=== PATIENT | female | born 1980 | race Caucasian/White ===

== ENCOUNTER 2018-06-18 21:24 | Emergency (ER) | payer MEDICAID, SELFPAY ==
[2018-06-18 21:37] VITALS: BP 144/98; PULSE 116; RESP 20; TEMP 37; O2SAT 96
--- NOTE | 2018-06-18 21:58 | W.ED.GENAD ---
Discharge Plan Disposition Patient Disposition: HOME Condition: Stable Discharge Details Chief Complaint: Sorethroat Clinical Impression: Acute streptococcal pharyngitis Primary Care Provider: Wu Farr ED Provider: Evans Byrd Home Meds and New Rx's Prescriptions: New amoxicillin 500 mg tablet 500 mg PO BID Qty: 20 RF: 0 No Action ibuprofen 800 mg Tablet 800 mg PO TID PRNRF: 0 multivitamin with minerals Tablet 1 tab PO DAILY RF: 0 Discharge Instructions Instructions: Pharyngitis (ED) Additional Instructions: if you develop difficulty breathing or inability to swallow liquids return to the emergency department Medical Decision Making 38 yo female who denies chronic medical problems comes in with chief compalint of sore throat for a few days. Has had strep throat and states peritonsillar abscess 10 years ago. On exam she is speaking in clear sentences without drooling or stridor. 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 Date/Time Provider Initiated Documentation: 06/18/18 21:35. Limitations to Documentation: no limitations. Information obtained by: patient. History of Present Illness 38 year old F presents to the emergency department with the chief complaint of sore throat, described as severe, and is localized to the mouth (throat). Patient started experiencing this day(s) (2) and it has been constant. No relieving factors improve symptom(s), No exacerbating factors reported . Patient did receive the following treatments prior to arrival, NSAID Related Data Home Medications Medication Instructions Recorded Confirmed amoxicillin 500 mg PO BID #20 tab 06/18/18 ibuprofen 800 mg PO TID PRN 06/18/18 06/18/18 multivitamin with minerals 1 tab PO DAILY 06/18/18 06/18/18 Previous Rx's Medication Instructions Recorded amoxicillin 500 mg PO BID #20 tab 06/18/18 Allergies Allergy/AdvReac Type Severity Reaction Status Date / Time No Known Allergies Allergy Unverified 06/18/18 21:40 General Stated Complaint: Sorethroat GISELLE: 4 Review of Systems Review of Systems All systems reviewed & are unremarkable except as noted in HPI and below Constitutional Denies weakness Cardiovascular Denies dyspnea Respiratory Denies dyspnea Gastrointestinal Denies vomiting Neurologic Denies weakness [facility] Social History Smoking and Tabacco status: Never Exam Const General: no acute distress Orientation: alert HENMT Head: normal to inspection Ears: external ears normal General nose exam: external nose normal Mouth: moist mucous membranes Eyes General: appearance normal, both eyes and all related structures Neck Neck: normal visual inspection Resp Effort & Inspection: normal respiratory effort and able to speak in complete sentences Cardio Rate: regular rate Skin General skin exam: no rashes or lesions noted Neuro General: alert and oriented x3 Extrem General: normal to inspection Psych Mental Status: mental status grossly normal Course Vital Signs Temperature 37.0 C 06/18/18 21:37 Pulse 116 H 06/18/18 21:37 Respiratory Rate 20 06/18/18 21:37 Blood Pressure 144/98 H 06/18/18 21:37 Pulse Oximetry 96 06/18/18 21:37 Temperature 37.0 C 06/18/18 21:37 Temperature Source Skin 06/18/18 21:37 Pulse 116 H 06/18/18 21:37 Respiratory Rate 20 06/18/18 21:37 Respiratory Effort Non-Labored 06/18/18 21:52 Blood Pressure 144/98 H 06/18/18 21:37 Blood Pressure Position Sitting 06/18/18 21:37 Pulse Oximetry 96 06/18/18 21:37 Oxygen Delivery Method Room Air 06/18/18 21:37 Oxygen Flow Rate 0 06/18/18 21:37 Pain Level 7 06/18/18 21:37 Lab/Test Results Lab/Test Results: POC Strep Test-NAVID(Rapid) Start: 06/18/18 21:52 Freq: Status: Active Protocol: Document 06/18/18 21:52 JESSICA (Rec: 06/18/18 21:52 [email or web address]) Strep test-NAVID(Rapid)-POC POC-Strep test-NAVID (Rapid) Positive POC-Strep test-NAVID (Rapid) Positive
--- NOTE | 2018-06-18 22:07 | ED.GENADUL_ITS ---
Discharge Plan Disposition Patient Disposition: HOME Condition: Stable Discharge Details Chief Complaint: Sorethroat Clinical Impression: Acute streptococcal pharyngitis Primary Care Provider: Wu Farr ED Provider: Evans Byrd Home Meds and New Rx's Prescriptions: New amoxicillin 500 mg tablet 500 mg PO BID Qty: 20 RF: 0 No Action ibuprofen 800 mg Tablet 800 mg PO TID PRNRF: 0 multivitamin with minerals Tablet 1 tab PO DAILY RF: 0 Discharge Instructions Instructions: Pharyngitis (ED) Additional Instructions: if you develop difficulty breathing or inability to swallow liquids return to the emergency department Medical Decision Making 38 yo female who denies chronic medical problems comes in with chief compalint of sore throat for a few days. Has had strep throat and states peritonsillar abscess 10 years ago. On exam she is speaking in clear sentences without drooling or stridor. 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 Date/Time Provider Initiated Documentation: 06/18/18 21:35 . Limitations to Documentation: no limitations . Information obtained by: patient . History of Present Illness 38 year old F presents to the emergency department with the chief complaint of sore throat, described as severe, and is localized to the mouth (throat). Patient started experiencing this day(s) (2) and it has been constant. No relieving factors improve symptom(s), No exacerbating factors reported . Patient did receive the following treatments prior to arrival, NSAID Related Data Home Medications Medication Instructions Recorded Confirmed amoxicillin 500 mg PO BID #20 tab 06/18/18 ibuprofen 800 mg PO TID PRN 06/18/18 06/18/18 multivitamin with minerals 1 tab PO DAILY 06/18/18 06/18/18 Previous Rx's Medication Instructions Recorded amoxicillin 500 mg PO BID #20 tab 06/18/18 Allergies Allergy/AdvReac Type Severity Reaction Status Date / Time No Known Allergies Allergy Unverified 06/18/18 21:40 General Stated Complaint: Sorethroat GISELLE: 4 Review of Systems Review of Systems All systems reviewed & are unremarkable except as noted in HPI and below Constitutional Denies weakness Cardiovascular Denies dyspnea Respiratory Denies dyspnea Gastrointestinal Denies vomiting Neurologic Denies weakness [facility] Social History Smoking and Tabacco status: Never Exam Const General: no acute distress Orientation: alert HENMT Head: normal to inspection Ears: external ears normal General nose exam: external nose normal Mouth: moist mucous membranes Eyes General: appearance normal, both eyes and all related structures Neck Neck: normal visual inspection Resp Effort & Inspection: normal respiratory effort and able to speak in complete sentences Cardio Rate: regular rate Skin General skin exam: no rashes or lesions noted Neuro General: alert and oriented x3 Extrem General: normal to inspection Psych Mental Status: mental status grossly normal Course Vital Signs Temperature 37.0 C 06/18/18 21:37 Pulse 116 H 06/18/18 21:37 Respiratory Rate 20 06/18/18 21:37 Blood Pressure 144/98 H 06/18/18 21:37 Pulse Oximetry 96 06/18/18 21:37 Temperature 37.0 C 06/18/18 21:37 Temperature Source Skin 06/18/18 21:37 Pulse 116 H 06/18/18 21:37 Respiratory Rate 20 06/18/18 21:37 Respiratory Effort Non-Labored 06/18/18 21:52 Blood Pressure 144/98 H 06/18/18 21:37 Blood Pressure Position Sitting 06/18/18 21:37 Pulse Oximetry 96 06/18/18 21:37 Oxygen Delivery Method Room Air 06/18/18 21:37 Oxygen Flow Rate 0 06/18/18 21:37 Pain Level 7 06/18/18 21:37 Lab/Test Results Lab/Test Results: POC Strep Test-NAVID(Rapid) Start: 06/18/18 21:5 2 Freq: Status: Active Protocol: Document 06/18/18 21:52 (Rec: 06/18/18 21:52 [email or web address]) Strep test-NAVID(Rapid)-POC POC-Strep test-NAVID (Rapid) Positive POC-Strep test-NAVID (Rapid) Positive
[2018-06-18] MEDS: Dexamethasone 10 MG/ML VIAL PO (22:10)
[2018-06-18] MEDS: Amoxicillin 500 MG CAP PO (22:10)
== END 2018-06-18 22:12 | disposition home or self-care (01) ==
PROVIDERS: Emergency Provider Emergency Medicine; PCP Internal Medicine
DX: J02.0 Streptococcal pharyngitis (principal)
CPT/HCPCS: 87880; 99283; J1100

== ENCOUNTER 2019-12-08 00:39 | Outpatient (CLI) | payer MEDICAID, SELFPAY ==
--- NOTE | 2019-12-08 | DI.US_ITS ---
EXAM: US BREAST LT LIMITED CLINICAL HISTORY: TENDER SWOLLEN AREA LT BREAST AT 1:00 O'CLOCK 6 CM FROM NIPPLE. TECHNIQUE: Craniocaudal and mediolateral oblique Full Field Digital Mammography views with Computer Aided Diagnosis followed by Tomosynthesis and left breast ultrasound. COMPARISON: No exams were available for comparison FINDINGS: Mammography/Tomosynthesis: Masses/Architectural Distortion: None seen. Microcalcifictions: No suspicious pleomorphic-type are seen. Skin Thickening/Nipple Retraction: None. Left breast US: Echotexture: Normal appearance of the glandular tissue. Shadowing: No suspicious foci. Cyst: None. Solid lesions: None seen. Ductal dilation: None. IMPRESSION: 1. No evidence of malignancy is noted. 2. Unless there is more urgent need, follow-up screening mammography is recommended, as per [place] [employer] guidelines. 3. The findings were discussed with the patient on the date of the examination. BI-RADS Category 1 - Negative Breast Density - Category C - Heterogeneously dense The mammogram demonstrates the patient's breast tissue is dense. Dense breast tissue is very common a nd is not abnormal but dense breast tissue can make it harder to find cancer on a mammogram. Also, de nse breast tissue may increase their breast cancer risk. This information about the result of the [facility] mogram report was provided to the patient to raise their awareness. Use this report when you speak wi th the patient about their risks for breast cancer, which includes their family history. At that time , you may recommend for more screening tests (Ultrasound or MRI) as they might be useful based on the ir risk. A negative radiographic report should not delay biopsy if a dominant or clinically suspicious mass is present. Up to ten percent of cancers are not identified on mammography. A negative report may reinforce clinical impression. Adenosis and dense breasts may obscure an underlying neoplasm. False positive reports average 6 to 10%. Patient will receive a letter notifying them of these results.
--- NOTE | 2019-12-08 09:25 | DI.MAMMO_ITS ---
EXAM: MG MAMMO DIAGNOSTIC BI CLINICAL HISTORY: DIAGNOSTIC, TENDER SWOLLEN AREA LT BREAST 1:00 O'CLOCK APPROX 6 CM FROM. TECHNIQUE: Craniocaudal and mediolateral oblique Full Field Digital Mammography views with Computer Aided Diagnosis followed by Tomosynthesis and left breast ultrasound. COMPARISON: No exams were available for comparison FINDINGS: Mammography/Tomosynthesis: Masses/Architectural Distortion: None seen. Microcalcifictions: No suspicious pleomorphic-type are seen. Skin Thickening/Nipple Retraction: None. Left breast US: Echotexture: Normal appearance of the glandular tissue. Shadowing: No suspicious foci. Cyst: None. Solid lesions: None seen. Ductal dilation: None. IMPRESSION: 1. No evidence of malignancy is noted. 2. Unless there is more urgent need, follow-up screening mammography is recommended, as per [place] [employer] guidelines. 3. The findings were discussed with the patient on the date of the examination. BI-RADS Category 1 - Negative Breast Density - Category C - Heterogeneously dense The mammogram demonstrates the patient's breast tissue is dense. Dense breast tissue is very common a nd is not abnormal but dense breast tissue can make it harder to find cancer on a mammogram. Also, de nse breast tissue may increase their breast cancer risk. This information about the result of the [facility] mogram report was provided to the patient to raise their awareness. Use this report when you speak wi th the patient about their risks for breast cancer, which includes their family history. At that time , you may recommend for more screening tests (Ultrasound or MRI) as they might be useful based on the ir risk. A negative radiographic report should not delay biopsy if a dominant or clinically suspicious mass is present. Up to ten percent of cancers are not identified on mammography. A negative report may reinforce clinical impression. Adenosis and dense breasts may obscure an underlying neoplasm. False positive reports average 6 to 10%. Patient will receive a letter notifying them of these results.
== END 2019-12-08 00:59 ==
PROVIDERS: PCP Nurse Practitioner Psychiatric/Mental Health; Visit Provider Advanced Practice Midwife
DX: N64.4 Mastodynia (principal); N64.59 Other signs and symptoms in breast; R92.2 Inconclusive mammogram
CPT/HCPCS: 76642; 77062; 77066; G0279

== ENCOUNTER 2020-01-11 10:35 | Emergency (ER) | payer MEDICAID, SELFPAY ==
[2020-01-11] VITALS (42 sets, daily range): BP systolic 120–154; BP diastolic 72–98; PULSE 66–86; RESP 13–26; TEMP 36.5–36.6; O2SAT 97–100
--- NOTE | 2020-01-11 10:30 | RT.EKG_ITS ---
APPROVED REPORT Exam: Resting ECG Patient Location: E HR:91 bpm ECG Measurements Heart Rate 91 AXIS MS 132 P 88 QRSd 71 QRS 68 QT 363 T 40 QTc 447 Conclusion Sinus rhythm...normal P axis, V-rate 60- 99 Normal Electrocardiogram
--- NOTE | 2020-01-11 10:53 | ED.GENADUL_ITS ---
Discharge Plan Disposition Condition: Stable Discharge Details Chief Complaint: Chest Pain Clinical Impression: Chest pain, Elevated liver function tests, Hypokalemia, Hypomagnesemia, Fatty infiltration of liver Primary Care Provider: Helga Porter ED Provider: Lelo Lin Home Meds and New Rx's Prescriptions: No Action multivitamin with minerals Tablet 1 tab PO DAILY RF: 0 Discharge Instructions Instructions: Chest Pain (ED), Hypokalemia (ED), Hypomagnesemia (ED), Alcohol Use Disorder (ED) Additional Instructions: Please return immediately to the emergency department if you develop any new or worsening symptoms, if your condition does not improve as expected, or if you become otherwise concerned. It is extremely important that you attend the appointment scheduled for you at [facility] at 10:45 AM on 01/20/2020, and also that you undergo stress testing this week as we discussed. Please reduce your alcohol intake to no more than 1 drink per day, and preferably no drinks per day as we discussed. Referrals: Carl Smith MD [ [facility] STAFF PHYSICIAN] - Discharge Data Discharge Date/Time-TO BE ENTERED AT DEPARTURE: 01/11/20 17:02 Medical Decision Making Jennifer Cortez is a 39 y/o woman without reported history of medical problems presenting to the emergency department with left-sided chest pain since 01/07/2020, worse with moving her left arm and laying on her left side while in bed. On exam patient is well and nontoxic-appearing. Left anterior chest tender to palpation, reproduces pain without other abnormal physical exam findings. Concern for musculoskeletal pain versus acute coronary syndrome versus pulmonary embolism versus other. Exam/history is not consistent with sepsis, acute aortic pathology, acute carotid pathology. Plan for EKG, chest x- ray, screening labs, telemetry, IV fluid hydration, IV Zofran, sublingual nitro, aspirin. Patient reporting headache after sublingual nitro, no change in chest pain, patient refuses further administration of this medication. Chest x-ray negative. Labs reviewed, potassium 2.9, magnesium 1.4, elevated LFTs without baseline in EMR. D-dimer elevated. Plan to replete potassium, magnesium. Will obtain CT chest. CT chest negative for acute process, shows fatty liver infiltration. BMP repeated after meds, potassium now 3.8. Repeat EKG, repeat Trop okay. Patient reports that chest pain significantly improved. Suspect lab abnormalities related to heavy alcohol intake, which I discussed at length with patient. I scheduled patient an appointment with her PCP 01/19 and ordered stress test. I had a lengthy discussion with Patient regarding return to emergency department precautions, home care including alcohol cessation, and importance of outpatient follow-up. Pt verbalizes understanding of the plan and is amenable. Patient discharged to home with clear plan for outpatient follow-up. All questions were answered. Disposition decision was made weighing the risks and benefits of hospitalization versus outpatient treatment, the risk for further decompensation, and the patient's wishes. Medical Records Medical records reviewed: Yes I reviewed the patient's medical records. Imaging Data Radiologic Study: Attestation: I personally reviewed and interpreted this imaging study as follows: Radiologist's impression: EXAM: XR CHEST 2V PA LATERAL CLINICAL HISTORY: chest pain TECHNIQUE: 2D digital imaging was performed. COMPARISON: No exams were available for comparison FINDINGS: The heart is not enlarged. The lungs are clear and well expanded. No pleural effusion seen. Mediastinal contours appear intact. IMPRESSION: Normal chest EXAM: CT CHEST PE CTA CLINICAL HISTORY: left chest pain. TECHNIQUE: Imaging Protocol: Axial CT angiography was performed with multi- slice acquisition and multi-planar and/or 3D reconstructions. CONTRAST MATERIAL: Intravenous: Omnipaque 350 Contrast volume:structured data in ml COMPARISON: No exams were available for comparison FINDINGS: CT angiography of the chest was performed with intravenous infusion of 58 cc of Omnipaque 350. The lungs are clear. No pleural effusion. Tracheobronchial tree appears intact. No evidence of pulmonary embolic disease. Thoracic aorta is of normal diameter, no thoracic aortic aneurysm or dissection, major branch vessels appear intact. No mediastinal or hilar adenopathy. Images obtained through the upper abdomen show unremarkable appearance of the visualized portions of the spleen, pancreas, adrenals, and kidneys. Note is made of hepatic steatosis. IMPRESSION: Negative CT angiogram of the chest. No evidence of pulmonary embolic disease. Lab Data Lab results reviewed: Yes I reviewed the patient's lab results. Labs: Laboratory Tests Range/Units 01/11/20 01/11/20 01/11/20 11:00 11:00 11:00 WBC (4.4-10.8) 10^3/uL 5.71 RBC (3.93-5.22) 10^6/uL 4.13 Hgb (11.2-15.7) g/dL 14.0 Hct (36.0-46.0) % 41.2 MCV (80-95) fL 99.8 H MCH (27.0-33.0) pg 33.9 H MCHC (32.0-36.0) % 34.0 RDW (11.7-14.6) % 13.0 Plt Count (130-400) 10^3/uL 260 MPV (8.0-11.0) fL 9.1 Immature Gran % 0.2 Neutrophils % 74.1 Lymphocytes % 14.5 Monocytes % 7.5 Eosinophils % 2.5 Basophils % 1.2 Nucleated RBC % % 0 Absolute Neutrophils (1.2-6.7) 10^3/uL 4.23 Absolute Lymphocytes (1.2-3.4) 10^3/uL 0.83 L Absolute Monocytes (0.1-0.8) 10^3/uL 0.43 Absolute Eosinophils (0.0-0.7) 10^3/uL 0.14 Absolute Basophils (0.0-0.2) 10^3/uL 0.07 D-Dimer (<500) ng/mlFEU 516 H Sodium (136-145) mmol/L 139 Potassium (3.5-5.1) mmol/L 2.9 L* Chloride (98-107) mmol/L 98 Carbon Dioxide (21.0-32.0) mmol/L 29.1 Anion Gap (3-11) mmol/L 11.9 H BUN (7-18) mg/dL 5 L Creatinine (0.55-1.02) mg/dL 0.70 Estimated GFR/1.73 m2 (mL/min/1.73m2) >= 60.00 Glucose (74-106) mg/dL 114 H Calcium (8.5-10.1) mg/dL 8.8 Magnesium (1.8-2.4) mg/dL 1.4 L Total Bilirubin (0.2-1.0) mg/dL 2.4 H AST (15-37) U/L 193 H ALT (14-59) U/L 99 H Alkaline Phosphatase (46-116) U/L 78 Troponin I (<0.06) ng/mL < 0.05 Total Protein (6.4-8.2) g/dL 7.7 Albumin (3.4-5.0) g/dL 3.8 Urine Color (Yellow) Urine Clarity (Clear) Urine pH (5-8) Ur Specific [place] (1.005-1.025) Urine Protein (Negative) mg/dL Urine Ketones (Negative) mg/dL Urine Blood (Negative) Urine Nitrite (Negative) Urine Bilirubin (Negative) Urine Urobilinogen (Up TO 0.2) EU/dL Ur Leukocyte Esterase (Negative) Urine RBC Urine WBC (0-5) HPF Ur Epithelial Cells (Negative) HPF Urine Crystals Urine Bacteria Urine Mucus Ur Culture Indicated? Urine Glucose (Negative) mg/dL Range/Units 01/11/20 01/11/20 01/11/20 11:55 14:12 14:12 WBC (4.4-10.8) 10^3/uL RBC (3.93-5.22) 10^6/uL Hgb (11.2-15.7) g/dL Hct (36.0-46.0) % MCV (80-95) fL MCH (27.0-33.0) pg MCHC (32.0-36.0) % RDW (11.7-14.6) % Plt Count (130-400) 10^3/uL MPV (8.0-11.0) fL Immature Gran % Neutrophils % Lymphocytes % Monocytes % Eosinophils % Basophils % Nucleated RBC % % Absolute Neutrophils (1.2-6.7) 10^3/uL Absolute Lymphocytes (1.2-3.4) 10^3/uL Absolute Monocytes (0.1-0.8) 10^3/uL Absolute Eosinophils (0.0-0.7) 10^3/uL Absolute Basophils (0.0-0.2) 10^3/uL D-Dimer (<500) ng/mlFEU Sodium (136-145) mmol/L 138 Potassium (3.5-5.1) mmol/L 3.8 D Chloride (98-107) mmol/L 101 Carbon Dioxide (21.0-32.0) mmol/L 29.0 Anion Gap (3-11) mmol/L 8.0 BUN (7-18) mg/dL 2 L Creatinine (0.55-1.02) mg/dL 0.58 Estimated GFR/1.73 m2 (mL/min/1.73m2) >= 60.00 Glucose (74-106) mg/dL 99 Calcium (8.5-10.1) mg/dL 8.4 L Magnesium (1.8-2.4) mg/dL Total Bilirubin (0.2-1.0) mg/dL AST (15-37) U/L ALT (14-59) U/L Alkaline Phosphatase (46-116) U/L Troponin I (<0.06) ng/mL < 0.05 Total Protein (6.4-8.2) g/dL Albumin (3.4-5.0) g/dL Urine Color (Yellow) Yellow Urine Clarity (Clear) Cloudy Urine pH (5-8) 6.5 Ur Specific [place] (1.005-1.025) 1.020 Urine Protein (Negative) mg/dL Negative Urine Ketones (Negative) mg/dL 40 H Urine Blood (Negative) Small H Urine Nitrite (Negative) Negative Urine Bilirubin (Negative) Small H Urine Urobilinogen (Up TO 0.2) EU/dL 1.0 H Ur Leukocyte Esterase (Negative) Trace H Urine RBC Not Applicable Urine WBC (0-5) HPF Ur Epithelial Cells (Negative) HPF Many Urine Crystals Not Applicable Urine Bacteria Not Applicable Urine Mucus Not Applicable Ur Culture Indicated? No/sq. contamination Urine Glucose (Negative) mg/dL Negative ECG Data Attestation: I personally reviewed and interpreted this ECG (s) as follows: Interpretation: EKG shows sinus rhythm at 91, normal axis, no acute ischemic changes, no STEMI, nondiagnostic EKG Repeat EKG shows sinus rhythm at 81, normal axis, no major change from prior, nondiagnostic EKG HPI General Mode of arrival: ambulatory . Date/Time Provider Initiated Documentation: 01/11/20 10:40 . Limitations to Documentation: no limitations . Information obtained by: patient, family, RN notes reviewed and old records reviewed . HPI Narrative: Jennifer Cortez is a 39-year-old woman without reported history of major medical problems presenting to the emergency department with chest pain. Patient reports that she has had chest pain beginning 01/07/2020. Patient reports that pain is tight/heavy, is located in her left chest, and radiates into the left arm. She has had some left finger tingling since onset of the pain. Patient reports that pain is worse when she raises her left arm over her head or to hold the steering wheel during driving, and also with lying on her left side in bed at night. Patient reports that since onset of pain she has also been feeling lightheaded, which she reports is a sensation mostly that she is going to faint, but also has some component of room spinning. Patient reports that her sensation of lightheadedness is worse with exertion, but pain is unchanged with exertion. Pain is unchanged with eating and deep breathing. She denies any other pain, fever, cough, shortness of breath, vomiting, diarrhea, other numbness, focal weakness. Patient reports that she drinks approximately 5 white clot beverages per day. She denies any tobacco/nicotine use, denies recreational drug use/history of IV drug use. 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 No other history of heart disease. No personal or family history of blood clots. No immobilization, no recent travel, no recent surgery. LMP 1 week ago. Patient reports decreased appetite over the past few days since onset of symptoms. Related Data Home Medications Medication Instructions Recorded Confirmed multivitamin with minerals 1 tab PO DAILY 06/18/18 01/11/20 Allergies Allergy/AdvReac Type Severity Reaction Status Date / Time No Known Allergies Allergy Unverified 01/11/20 11:03 General Stated Complaint: Chest Pain GISELLE: 2 Review of Systems Narrative: Constitutional: denies fevers Eyes: denies eye pain ENT: denies ear pain, dental pain, sore throat Cardiovascular: denies edema, reports chest pain, lightheadedness Respiratory: denies SOB, cough GI: denies abdominal pain, vomiting, diarrhea, reports nausea : denies flank pain MSK: denies back pain, neck pain, arthralgias, reports intermittent upper left arm pain as per HPI Skin: denies rash Neuro: denies headaches, numbness other than tingling in left fingers intermittently as per HPI, focal weakness [facility] Social History (Updated 01/11/20 @ 12:52 by Lelo Lin MD) Smoking/Tobacco Use Status: Never Alcohol Intake: current Alcohol Intake frequency: 3 or more drinks per day Alcohol type: other Drug use: Never Substance use type: does not use Do you feel safe at home: Yes Do you feel safe in your relationship?: Yes Exam Narrative Exam Narrative: Constitutional: well and [id number], pleasant, conversing normally HENT: head atraumatic/normocephalic/normal inspection, mucous membranes moist Eyes: conjunctiva normal, sclera normal, pupils 3mm b/l Neck: no stridor, normal ROM, trachea midline Chest: normal inspection, left anterior chest tender to palpation, reproduces pain, no crepitus/deformity/overlying skin changes Resp: normal work of breathing, LCTAB Cardio: normal rate, normal rhythm, no murmur appreciated GI: abdomen soft, non-tender, non-distended Skin: warm, dry, normal color, no rash Neuro: alert, not altered, grossly non-focal, normal tone Ext: no edema, no posterior calf tenderness palpation Psych: normal mood, normal affect, normal behavior Course Vital Signs Vital signs: Vital Signs Temperature 36.5 C 01/11/20 10:40 Pulse 82 01/11/20 10:40 Respiratory Rate 22 01/11/20 10:40 Blood Pressure 151/79 H 01/11/20 10:40 Pulse Oximetry 99 01/11/20 10:40 Temperature 36.5 C 01/11/20 10:40 Temperature Source Skin 01/11/20 10:40 Pulse 82 01/11/20 10:40 Respiratory Rate 22 01/11/20 10:40 Blood Pressure 151/79 H 01/11/20 10:40 Blood Pressure Position Sitting 01/11/20 10:40 Pulse Oximetry 99 01/11/20 10:40 Oxygen Delivery Method Room Air 01/11/20 10:40 Oxygen Flow Rate 0 01/11/20 10:40 Pain Level 6 01/11/20 10:40
[2020-01-11] MEDS: Normal Saline 1,000 ML 1000 ML IV (11:20)
[2020-01-11] MEDS: Ondansetron 4 MG/2 ML VIAL IVP (11:25)
[2020-01-11] MEDS: nitroGLYcerin 0.4 MG TAB SL (11:25)
[2020-01-11 11:26] LABS: Abs Immature Grans 0.01 10^3/uL (0.0-0.06); Absolute Basophil Count 0.07 10^3/uL (0.0-0.2); Absolute Eosinophil Count 0.14 10^3/uL (0.0-0.7); Absolute Lymphocyte Count 0.83 10^3/uL (1.2-3.4); Absolute Monocyte Count 0.43 10^3/uL (0.1-0.8); Absolute Neutrophil Count 4.23 10^3/uL (1.2-6.7); Basophils % 1.2; Eosinophils % 2.5; HCT 41.2 % (36.0-46.0); Immature Grans % 0.2; Lymphocytes % 14.5; MCH 33.9 pg (27.0-33.0); MCV 99.8 fL (80-95); MPV 9.1 fL (8.0-11.0); Monocytes % 7.5; Neutrophils % 74.1; Nucleated RBC 0 %; Platelet Count 260 10^3/uL (130-400); RBC 4.13 10^6/uL (3.93-5.22); RDW-SD 47.8 fL; WBC 5.71 10^3/uL (4.4-10.8)
--- NOTE | 2020-01-11 11:30 | DI.RAD_ITS ---
EXAM: XR CHEST 2V PA LATERAL CLINICAL HISTORY: chest pain TECHNIQUE: 2D digital imaging was performed. COMPARISON: No exams were available for comparison FINDINGS: The heart is not enlarged. The lungs are clear and well expanded. No pleural effusion seen. Mediastin al contours appear intact. IMPRESSION: Normal chest RADIATION DOSE DELIVERED: Total DLP
[2020-01-11 11:47] LABS: ALT 99 U/L (14-59); AST 193 U/L (15-37); Albumin 3.8 g/dL (3.4-5.0); Alkaline Phosphatase 78 U/L (46-116); Anion Gap 11.9 mmol/L (3-11); BUN 5 mg/dL (7-18); Bilirubin, Total 2.4 mg/dL (0.2-1.0); CO2 29.1 mmol/L (21.0-32.0); Calcium 8.8 mg/dL (8.5-10.1); Chloride 98 mmol/L (98-107); Glucose 114 mg/dL (74-106); Magnesium 1.4 mg/dL (1.8-2.4); Sodium 139 mmol/L (136-145); Total Protein 7.7 g/dL (6.4-8.2)
[2020-01-11 11:51] LABS: Potassium 2.9 mmol/L (3.5-5.1); Troponin I < 0.05 ng/mL (<0.06)
[2020-01-11 12:01] LABS: D-Dimer 516 ng/mlFEU (<500)
[2020-01-11 12:13] LABS: Bilirubin Small (Negative); Blood Small (Negative); Clarity Cloudy (Clear); Glucose Negative (Negative); Ketones 40 mg/dL (Negative); Leukocyte Esterase Trace (Negative); Nitrite Negative (Negative); pH 6.5 (5-8)
[2020-01-11] MEDS: MAGNESIUM SULFATE 2 GM/50 ML BAG IVPB (12:15)
[2020-01-11] MEDS: POTASSIUM CHLORIDE 20 MEQ/100 ML BAG 50 MEQ IVPB ×2 (12:15→14:15)
[2020-01-11 12:24] LABS: C & S Indicated? No/Sq. Contamination; Epithelial Cells Many HPF (Negative)
[2020-01-11] MEDS: Aspirin 81 MG CHEW 324 MG CH (13:11)
--- NOTE | 2020-01-11 13:34 | NUR.NOTE ---
pt provided with meal tray Nursing Note:
--- NOTE | 2020-01-11 14:15 | RT.EKG_ITS ---
APPROVED REPORT Exam: Resting ECG Patient Location: E HR:81 bpm ECG Measurements Heart Rate 81 AXIS RI 145 P 45 QRSd 68 QRS 72 QT 390 T 66 QTc 452 Conclusion Sinus rhythm...normal P axis, V-rate 60- 99 EKG shows sinus rhythm at 81, normal axis, no major change from prior, nondiagnostic EKG
[2020-01-11 14:22] LABS: BUN 2 mg/dL (7-18); CREATININE 0.58 mg/dL (0.55-1.02); Calcium 8.4 mg/dL (8.5-10.1); Chloride 101 mmol/L (98-107); Glucose 99 mg/dL (74-106); Potassium 3.8 mmol/L (3.5-5.1); Sodium 138 mmol/L (136-145)
[2020-01-11 14:36] LABS: Troponin I < 0.05 ng/mL (<0.06)
--- NOTE | 2020-01-11 14:51 | DI.CT_ITS ---
EXAM: CT CHEST PE CTA CLINICAL HISTORY: left chest pain. TECHNIQUE: Imaging Protocol: Axial CT angiography was performed with multi-slice acquisition and mu lti-planar and/or 3D reconstructions. CONTRAST MATERIAL: Intravenous: Omnipaque 350 Contrast volume:structured data in ml COMPARISON: No exams were available for comparison FINDINGS: CT angiography of the chest was performed with intravenous infusion of 58 cc of Omnipaque 350. The lungs are clear. No pleural effusion. Tracheobronchial tree appears intact. No evidence of pulmonary embolic disease. Thoracic aorta is of normal diameter, no thoracic aortic an eurysm or dissection, major branch vessels appear intact. No mediastinal or hilar adenopathy. Images obtained through the upper abdomen show unremarkable appearance of the visualized portions of the spleen, pancreas, adrenals, and kidneys. Note is made of hepatic steatosis. IMPRESSION: Negative CT angiogram of the chest. No evidence of pulmonary embolic disease. RADIATION DOSE DELIVERED: 221.52mGy.cm Total DLP 221.52mGy.cm Total DLP DATA REPOSITORY: All CT scans at this facility are submitted to the National Radiology Data Registry (NRDR) Dose Index Registry (DIR) with the [employer] (A[employer]). RADIATION OPTIMIZATION: All CT scans at this facility use at least one of these dose optimization te chniques: automated exposure control; mA and/or kV adjustment per patient size (includes targeted exa ms where dose is matched to clinical indication); or iterative reconstruction.
[2020-01-11] MEDS: Normal Saline - Diluent 50 ML VIAL IV (14:54)
[2020-01-11] MEDS: Omnipaque 350 MG/ML 100 ML BTL 58 ML IJ (14:55)
== END 2020-01-11 17:02 ==
PROVIDERS: Emergency Provider Student in an Organized Health Care Education/Training Program; PCP Nurse Practitioner Psychiatric/Mental Health
DX: E87.6 Hypokalemia (principal); E83.42 Hypomagnesemia; R07.9 Chest pain, unspecified; F10.10 Alcohol abuse, uncomplicated; R74.01 Elevation of levels of liver transaminase levels
CPT/HCPCS: 36415; 71275; 80048; 80053; 81025; 93005; 96361; 96365; 96366; 96368; 96375; 99285; 71046; 81003; 81015; 83735; 84484; 85025; 85379; 93010; 99284; J2405; J3480; J3490

== ENCOUNTER 2020-01-28 01:24 | Outpatient (CLI) | payer MEDICAID, SELFPAY ==
--- NOTE | 2020-01-28 | ETT_ITS ---
APPROVED REPORT Exam: Exercise Treadmill Patient Location: Out-Patient Room/Bed: Stress Nurse: Christine Madsen RN BMI: 21.03 Baseline Rhythm: Sinus Rhythm Indications: C/O 4-5 days of continuous, progressively worsening left sided chest heaviness, radiatin g down left arm, with associated dizziness and tingling of left hand. Hypomagnesia and hypokalemia no jone on ED visit. Medical History Medical History: ETOH use. Murmur. Anxiety. Hypokalemia. Hypomagnesemia. Cardiac Medications: None. Allergies: NKDA Cardiac Risk Factors: None. Previous Cardiac Procedures: None. Pretest Chest Pain Characteristics: No chest pain Exercise History: Physically active Lung Sounds: Clear to auscultation Heart Sounds: Regular Stress Test Details Test: Exercise stress testing was performed using a Nik protocol. Rest Stress HR Resting HR Supine: 69 bpm Max Heart Rate (APMHR): 183 bpm Resting HR Standin bpm Target HR (85% APMHR): 155 bpm Max HR Achieved: 194 bpm % of APMHR: 106 Recovery HR: 104 bpm HR response to stress: Normal HR response to stress BP Resting BP Supine: 118/83 mmHg Resting BP Standin/82 mmHg Max BP: 150/82 mmHg Recovery BP: 112/88 mmHg BP response to stress: Normal blood pressure response to stress. ECG Resting ECG: Sinus Rhythm Ectopy: None. Stress ECG: Sinus Tachycardia ST Change: No significant ST segment changes noted. Arrhythmia: None Recovery ECG: Sinus Tachycardia Recovery ST Change: No significant ST segment changes noted. Recovery Arrhythmia: None. Clinical Reason for Termination: Fatigue Stress Symptoms: General Fatigue Exercise duration: 10 min28 sec Highest Stage Reached: Stage 4: 4.2 mph at 16% grade. Exercise capacity: 12.56 METs Stress ECG Conclusion 1. The patient exercised for 10 minutes (13 METS). Exercise was stopped due to fatigue. 2. There is a maximal exertion stress test as the patient reached over 100% of maximum predicted hear t rate. 3. There is no evidence of ischemia on the EKG portion of the exam. 4. The Pearson Score ( 11) estimates an annual cardiovascular mortality of 0% and a five year survival o f 96%. Using the Pearson Score there is a low probability of any angiographic coronary disease. Stress Test Summary STAGE Time (mins) Speed (mph) Grade (%) HR BP SYMPTOMS METS Supine 69 118/83 Standing 75 121/82 2 6 2.5 12 122 120/80 7 3 9 3.4 14 171 130/78 10.2 4 12 4.2 16 190 12.9 1 min recovery 150 142/92 3 min recovery 124 150/82 6 min recovery 111 118/72 9 min recovery 99 102/72 12 min recovery 104 112/88 Treadmill turned off unexpectedly at 02:15 and restarted at 04:04. Patient missed the end of stage 1, beginning of stage 2. Treadmill restarted during the second phase. The decision was made to continue the stress test despite missing 2 minutes of exercise.
== END 2020-01-28 01:44 ==
PROVIDERS: PCP Nurse Practitioner Psychiatric/Mental Health; Visit Provider Student in an Organized Health Care Education/Training Program
DX: R07.89 Other chest pain (principal); R42 Dizziness and giddiness; R20.2 Paresthesia of skin; E83.42 Hypomagnesemia; E87.6 Hypokalemia
CPT/HCPCS: 93017

== ENCOUNTER 2020-01-29 13:46 | Outpatient (REF) | payer MEDICAID, SELFPAY ==
[2020-01-29 21:53] LABS: ALT 36 U/L (14-59); AST 60 U/L (15-37); Albumin 4.1 g/dL (3.4-5.0); Alkaline Phosphatase 68 U/L (46-116); Anion Gap 8.5 mmol/L (3-11); BUN 10 mg/dL (7-18); Bilirubin, Total 1.4 mg/dL (0.2-1.0); CO2 26.5 mmol/L (21.0-32.0); CREATININE 0.67 mg/dL (0.55-1.02); Calcium 9.4 mg/dL (8.5-10.1); Chloride 103 mmol/L (98-107); Glucose 88 mg/dL (74-106); Magnesium 2.1 mg/dL (1.8-2.4); Potassium 4.4 mmol/L (3.5-5.1); Sodium 138 mmol/L (136-145)
== END 2020-01-29 14:06 ==
LOC: NCHCN 13:46
PROVIDERS: PCP Nurse Practitioner Psychiatric/Mental Health; Visit Provider Family Medicine
DX: E83.42 Hypomagnesemia (principal); E87.6 Hypokalemia
CPT/HCPCS: 80053; 83735

== ENCOUNTER 2020-10-04 11:52 | Outpatient (REF) | payer MEDICAID, SELFPAY ==
[2020-10-04 14:11] LABS: Clarity Sl Cloudy (Clear); Specific Gravity 1.025 (1.005-1.025)
[2020-10-04 14:14] LABS: WBC >50 HPF (0-5)
[2020-10-04 14:15] LABS: Bacteria Many HPF (Negative); Crystals Negative HPF (Negative); Epithelial Cells Moderate HPF (Negative); Mucus Trace (Negative); Other Cells Few Renal (Negative)
[2020-10-04 14:16] LABS: C & S Indicated? Yes
== END 2020-10-04 11:53 | disposition home or self-care (01) ==
LOC: NCHCN 11:52
PROVIDERS: PCP Nurse Practitioner Psychiatric/Mental Health; Visit Provider Nurse Practitioner Family
DX: R30.0 Dysuria (principal)
CPT/HCPCS: 81003; 81015; 87086

== ENCOUNTER 2021-03-07 10:30 | Emergency (ER) | payer OTHER, SELFPAY ==
[2021-03-07 10:34] VITALS: BP 151/110; PULSE 95; RESP 20; TEMP 36.2; O2SAT 99
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
[2021-03-07] MEDS: Erythromycin Ophth Oint 3.5 GM TUBE OU (11:43)
[2021-03-07] MEDS: Tetracaine 0.5% 4 ML BTL (11:51)
[2021-03-07] MEDS: Fluorescein STRIPS 100/BOX 1 MG (11:51)
== END 2021-03-07 12:09 | disposition home or self-care (01) ==
PROVIDERS: Emergency Provider Physician Assistant; PCP Nurse Practitioner Psychiatric/Mental Health
DX: T20.16XA Burn of first degree of forehead and cheek, initial encounter (principal); T26.02XA Burn of left eyelid and periocular area, initial encounter; T26.01XA Burn of right eyelid and periocular area, initial encounter; X02.8XXA Other exposure to controlled fire in building or structure, initial encounter; Y99.0 Civilian activity done for income or pay
CPT/HCPCS: 90471; 99284; 99283

== ENCOUNTER 2021-05-24 15:28 | Emergency (ER) | payer MEDICAID, SELFPAY ==
[2021-05-24] VITALS (20 sets, daily range): BP systolic 113–165; BP diastolic 74–108; PULSE 94–167; RESP 11–22; TEMP 37; O2SAT 97–100
--- NOTE | 2021-05-24 15:45 | RT.EKG_ITS ---
APPROVED REPORT Exam: Resting ECG Reason for Exam: rapid heart rate Patient Location: E HR:142 bpm ECG Measurements Heart Rate 142 AXIS OR 129 P 82 QRSd 66 QRS 77 QT 287 T 55 QTc 443 Conclusion Sinus tachycardia...rate> 99 Anteroseptal infarct, old...Q >40mS, V1-V2. Sinus. Q waves anterior leads. No STEMI. I have reviewed and interpreted ECG and agree with software generated interpretation.
[2021-05-24] MEDS: Normal Saline 1,000 ML 2000 ML IV (16:00)
--- NOTE | 2021-05-24 16:00 | DI.RAD_ITS ---
Exam(s) XR CHEST 2V PA LATERAL EXAM: XR CHEST 2V PA LATERAL CLINICAL HISTORY: fall, left thoracic contusion TECHNIQUE: 2D digital imaging was performed of the chest. Two images were obtained. PA and lateral views were obtained. COMPARISON: CR XR CHEST 2V PA LATERAL from 01/11/2020 FINDINGS: MEDIASTINUM: Normal. HEART: Normal. PULMONARY VASCULATURE: Normal. LUNGS: Clear. PLEURAL SPACE: No pleural effusion or pneumothorax. BONE:Within normal limits for the patient's age. OTHER FINDINGS:Normal. IMPRESSION: No acute pulmonary findings. DATA REPOSITORY: RADIATION DOSE DELIVERED:
--- NOTE | 2021-05-24 16:00 | DI.CT_ITS ---
Exam(s) CT HEAD CERVICAL SPINE WO EXAM: CT HEAD CERVICAL SPINE WO CLINICAL HISTORY: pain and confusion post fall. TECHNIQUE: Imaging Protocol: Axial computed tomography images with coronal and sagittal reformatted images were created and reviewed COMPARISON: No exams were available for comparison FINDINGS: CT Head: Ventricles and Extra axial spaces: Normal in size and morphology for the patient's age. Hemorrhage: None. Cerebral parenchyma: Normal. Midline shift: None. Brainstem/Cerebellum: Normal. Calvarium: Normal. Visualized Paranasal sinuses/Mastoids: Clear. Soft Tissues: Unremarkable. CT Cervical Spine: Bones: No acute fracture or subluxation. Soft Tissues: Unremarkable. Lung Apices: Clear. IMPRESSION: 1. No acute intracranial process. 2. No acute fracture or subluxation in the cervical spine. RADIATION DOSE DELIVERED: 1,080.93mGy.cm Total DLP DATA REPOSITORY: All CT scans at this facility are submitted to the National Radiology Data Registry (NRDR) Dose Index Registry (DIR) with the [employer] ([employer]). RADIATION OPTIMIZATION: All CT scans at this facility use at least one of these dose optimization te chniques: automated exposure control; mA and/or kV adjustment per patient size (includes targeted exa ms where dose is matched to clinical indication); or iterative reconstruction.
--- NOTE | 2021-05-24 16:00 | DI.RAD_ITS ---
Exam(s) XR SHOULDER RT COMPLETE 2+V EXAM: XR SHOULDER RT COMPLETE 2+V CLINICAL HISTORY: left shoulder pain. TECHNIQUE: 2D digital imaging was performed of the right shoulder. Four images were obtained. AP, Grashey, Y-view and axillary views were obtained. COMPARISON: No exams were available for comparison FINDINGS: BONES: No acute fracture is present. No bony destructive lesion is seen. JOINTS: No dislocation present. SOFT TISSUE: Normal. IMPRESSION: Unremarkable radiographs of the right shoulder. DATA REPOSITORY: RADIATION DOSE DELIVERED:
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
[2021-05-24 16:21] LABS: Abs Immature Grans 0.02 10^3/uL (0.0-0.06); Absolute Basophil Count 0.09 10^3/uL (0.0-0.2); Absolute Eosinophil Count 0.11 10^3/uL (0.0-0.7); Absolute Lymphocyte Count 3.73 10^3/uL (1.2-3.4); Absolute Monocyte Count 0.55 10^3/uL (0.1-0.8); Absolute Neutrophil Count 3.14 10^3/uL (1.2-6.7); Basophils % 1.2; Eosinophils % 1.4; HCT 43.2 % (36.0-46.0); HGB 14.7 g/dL (11.2-15.7); Immature Grans % 0.3; Lymphocytes % 48.8; MCH 33.8 pg (27.0-33.0); MCV 99.3 fL (80-95); MPV 9.4 fL (8.0-11.0); Monocytes % 7.2; Neutrophils % 41.1; Nucleated RBC 0 %; Platelet Count 401 10^3/uL (130-400); RBC 4.35 10^6/uL (3.93-5.22); RDW 12.1 % (11.7-14.6); RDW-SD 45.1 fL; WBC 7.64 10^3/uL (4.4-10.8)
[2021-05-24] MEDS: MAGNESIUM SULFATE 1 GM/100 ML BAG IVPB (16:26)
[2021-05-24] MEDS: Metoclopramide 10 MG/2 ML VIAL 5 MG IVP (16:26)
[2021-05-24 16:32] LABS: HCG Qual (Serum) Negative
[2021-05-24 16:46] LABS: ALT 32 U/L (14-59); AST 58 U/L (15-37); Albumin 3.6 g/dL (3.4-5.0); Alkaline Phosphatase 129 U/L (46-116); BUN 4 mg/dL (7-18); Bilirubin, Total 1.1 mg/dL (0.2-1.0); CREATININE 0.6 mg/dL (0.55-1.02); Calcium 8.3 mg/dL (8.5-10.1); Chloride 104 mmol/L (98-107); Glucose 111 mg/dL (74-106); Magnesium 1.9 mg/dL (1.8-2.4); Sodium 142 mmol/L (136-145); TSH (W/Ref FT4) 2.86 uIU/mL (0.36-3.74); Total Protein 8.2 g/dL (6.4-8.2)
[2021-05-24] MEDS: Normal Saline 1,000 ML 1000 ML IV (16:47)
[2021-05-24 16:53] LABS: Potassium 2.7 mmol/L (3.5-5.1)
[2021-05-24 17:05] LABS: Troponin I < 50 ng/L (<or=60)
[2021-05-24 17:21] LABS: D-Dimer 386 ng/mlFEU (<500)
[2021-05-24] MEDS: Potassium Chloride 20 MEQ TABCR 40 MEQ PO (17:31)
[2021-05-24] MEDS: POTASSIUM CHLORIDE 10 MEQ/100 ML BAG 100 MEQ IVPB (17:31)
[2021-05-24 17:39] LABS: *AMPHETAMINES SCREEN URINE Negative (Negative); *BARBITURATES SCREEN URINE Negative (Negative); *BENZODIAZEPINES SCREEN URINE Negative (Negative); Cannabinoids THC Negative (Negative); Cocaine Screen,Urine Negative (Negative); METHADONE URINE SCREEN Negative (Negative); OPIATES URINE SCREEN Negative (Negative)
[2021-05-24 17:43] LABS: Tricyclic Antidepressants Negative (Negative)
--- NOTE | 2021-05-24 17:54 | DI.VRAD_ITS ---
PROCEDURE INFORMATION: Exam: CT Head Without Contrast Exam date and time: 05/24/2021 4:06 PM Age: 41 years old Clinical indication: Injury or trauma; Other: Pain and confusion post fall; Blunt trauma (contusions or hematomas) TECHNIQUE: Imaging protocol: Computed tomography of the head without contrast. COMPARISON: No relevant prior studies available. FINDINGS: Brain: Normal. No hemorrhage. Unremarkable white matter. No mass effect. Cerebral ventricles: No ventriculomegaly. Paranasal sinuses: Visualized sinuses are unremarkable. No fluid levels. Mastoid air cells: Visualized mastoid air cells are well aerated. Bones/joints: Unremarkable. No acute fracture. Soft tissues: Unremarkable. IMPRESSION: No acute intracranial abnormality. PROCEDURE INFORMATION: Exam: CT Cervical Spine Without Contrast Exam date and time: 05/24/2021 4:06 PM Age: 41 years old Clinical indication: Injury or trauma; Other: Pain and confusion post fall; Blunt trauma (contusions or hematomas) TECHNIQUE: Imaging protocol: Computed tomography images of the cervical spine without contrast. COMPARISON: No relevant prior studies available. FINDINGS: Bones/joints: No acute fracture. Normal alignment. Discs/Spinal canal/Neural foramina: No significant disc protrusion. No severe spinal canal stenosis. No significant neural foraminal narrowing. Lungs: Lung apices are normal. Soft tissues: Unremarkable. IMPRESSION: No acute findings. Dictated and Authenticated by: Tom Banuelos MD. Ordering:JERRY You MD
--- NOTE | 2021-05-24 17:55 | DI.VRAD_ITS ---
PROCEDURE INFORMATION: Exam: XR Chest Exam date and time: 05/24/2021 4:06 PM Age: 41 years old Clinical indication: Injury or trauma; Other: Pain and confusion post fall; Blunt trauma (contusions or hematomas) TECHNIQUE: Imaging protocol: XR of the chest. Views: 2 views. COMPARISON: CR XR CHEST 2V PA LATERAL 01/11/2020 12:05 PM FINDINGS: Airway: Patent Lungs: Unremarkable. No consolidation. Pleural spaces: Unremarkable. No pleural effusion. No pneumothorax. Heart/Mediastinum: Unremarkable. No cardiomegaly. Bones/joints: No acute skeletal abnormality or aggressive osseous lesion. IMPRESSION: No acute findings. Dictated and Authenticated by: Dario Murphy MD. Ordering:JERRY You MD
--- NOTE | 2021-05-24 17:57 | DI.VRAD_ITS ---
PROCEDURE INFORMATION: Exam: XR Right Shoulder Exam date and time: 05/24/2021 5:17 PM Age: 41 years old Clinical indication: Injury or trauma; Other: Pain and confusion post fall; Bleeding/hemorrhage; Shoulder; Right TECHNIQUE: Imaging protocol: XR Right shoulder. Views: 2 or more views. COMPARISON: CR XR CHEST 2V PA LATERAL 05/24/2021 5:06 PM FINDINGS: Bones/joints: Osseous anatomic alignment is well preserved. No acutely displaced fracture or dislocation. Joint spaces are well preserved. Soft tissues: There is no significant soft tissue swelling. Visualized chest is unremarkable. IMPRESSION: No acute skeletal pathology. Dictated and Authenticated by: Dario Murphy MD. Ordering:JERRY You MD
--- NOTE | 2021-05-24 18:29 | NUR.NOTE ---
typewriters functional tester adminstered PO potassium to patient. Patient was able to take the tablet of medication from typewriters functional tester and place it in her mouth. She then was able to take the cup of water bring it to her mouth and take a drink to swallowed the tablet. This was done with the opposite hand with the second tablet of medication. Patient was able to perform this task without distress. Nursing Note:
--- NOTE | 2021-05-24 18:32 | NUR.NOTE ---
Nursing Note: Referral faxed to [facility] Neurology for follow up of post concussive witihin the next week. Emily Kaur
--- NOTE | 2021-05-24 18:37 | NUR.NOTE ---
Patient requesting to call her . Provided cordless cell phone to patient who was able to dial a phone number using both hands with ease. Conversed on phone for several minutes.
== END 2021-05-24 19:11 | disposition home or self-care (01) ==
PROVIDERS: Physician Assistant; Emergency Provider Physician Assistant; PCP Nurse Practitioner Psychiatric/Mental Health
DX: S06.899A Other specified intracranial injury with loss of consciousness of unspecified duration, initial encounter (principal); F07.81 Postconcussional syndrome; V00.321A Fall from snow-skis, initial encounter; R00.0 Tachycardia, unspecified; F10.129 Alcohol abuse with intoxication, unspecified; Y90.8 Blood alcohol level of 240 mg/100 ml or more; S20.212A Contusion of left front wall of thorax, initial encounter; M25.511 Pain in right shoulder; E87.6 Hypokalemia
CPT/HCPCS: 36415; 80053; 80307; 81025; 93005; 96361; 96365; 96366; 96367; 96375; 99285; 70450; 71046; 72125; 73030; 80320; 83735; 84443; 84484; 84703; 85025; 85379; 93010; 99284; J2765; J3475; J3480

== ENCOUNTER 2021-08-17 09:31 | Outpatient (REF) | payer MEDICAID, SELFPAY ==
[2021-08-17 15:08] LABS: Abs Immature Grans 0.01 10^3/uL (0.0-0.06); Absolute Basophil Count 0.04 10^3/uL (0.0-0.2); Absolute Eosinophil Count 0.05 10^3/uL (0.0-0.7); Absolute Lymphocyte Count 0.89 10^3/uL (1.2-3.4); Absolute Monocyte Count 0.35 10^3/uL (0.1-0.8); Absolute Neutrophil Count 3.11 10^3/uL (1.2-6.7); Basophils % 0.9; Eosinophils % 1.1; HCT 42.4 % (36.0-46.0); HGB 14.1 g/dL (11.2-15.7); Immature Grans % 0.2; MCH 36.2 pg (27.0-33.0); MCHC 33.3 % (32.0-36.0); MCV 109 fL (80-95); MPV 10.2 fL (8.0-11.0); Monocytes % 7.9; Neutrophils % 69.9; Platelet Count 301 10^3/uL (130-400); RDW 14.3 % (11.7-14.6); RDW-SD 57.3 fL; WBC 4.45 10^3/uL (4.4-10.8)
[2021-08-17 15:46] LABS: ALT 103 U/L (14-59); AST 323 U/L (15-37); Alkaline Phosphatase 116 U/L (46-116); BUN 8 mg/dL (7-18); Bilirubin, Total 2.7 mg/dL (0.2-1.0); CREATININE 0.7 mg/dL (0.55-1.02); Calcium 8.9 mg/dL (8.5-10.1); Chloride 101 mmol/L (98-107); Glucose 126 mg/dL (74-106); Sodium 139 mmol/L (136-145); TSH (W/Ref FT4) 1.79 uIU/mL (0.36-3.74); Total Protein 7.8 g/dL (6.4-8.2)
[2021-08-21 11:58] LABS: Hepatitis A Antibody IgM Negative (Negative); Hepatitis B Core Antibody Negative (Negative); Hepatitis B surface Ag Negative (Negative); Hepatitis C Ab w Rflx HCV PCR Negative (Negative)
== END 2021-08-17 09:32 | disposition home or self-care (01) ==
LOC: NCHCN 09:31
PROVIDERS: PCP Nurse Practitioner Psychiatric/Mental Health; Visit Provider Nurse Practitioner Family
DX: R63.4 Abnormal weight loss (principal); R19.7 Diarrhea, unspecified; R79.89 Other specified abnormal findings of blood chemistry; E83.42 Hypomagnesemia; E87.8 Other disorders of electrolyte and fluid balance, not elsewhere classified
CPT/HCPCS: 80053; 86704; 86709; 86803; 87340; 84443; 85025

== ENCOUNTER 2021-08-22 18:26 | Outpatient (REF) | payer MEDICAID, SELFPAY ==
[2021-08-24 10:28] LABS: Hepatitis A Antibody IgM Negative (Negative); Hepatitis B Core Antibody Negative (Negative); Hepatitis B surface Ag Negative (Negative); Hepatitis C Ab w Rflx HCV PCR Negative (Negative)
== END 2021-08-22 18:27 | disposition home or self-care (01) ==
LOC: NCHCN 18:26
PROVIDERS: PCP Nurse Practitioner Psychiatric/Mental Health; Visit Provider Nurse Practitioner Family
DX: R79.89 Other specified abnormal findings of blood chemistry (principal)
CPT/HCPCS: 86704; 86709; 86803; 87340

== ENCOUNTER 2021-09-27 15:38 | Outpatient (REF) | payer MEDICAID, SELFPAY | END 2021-09-27 15:39 | disposition home or self-care (01) | LOC: NCHCN 15:38 | PROVIDERS: PCP Nurse Practitioner Psychiatric/Mental Health; Visit Provider Nurse Practitioner Family ==

== ENCOUNTER → 2021-10-10 01:51 | Outpatient (CLI) | payer MEDICAID, SELFPAY ==
--- NOTE | 2021-10-10 09:15 | DI.US_ITS ---
Exam(s) US ABDOMEN EXAM: US ABDOMEN CLINICAL HISTORY: ELEVATED LFTS, R79.89; FOCUS ON LIVER TECHNIQUE: Ultrasound of complete upper abdomen performed using standard protocol. COMPARISON: CT CT CHEST PE CTA from 01/11/2020 FINDINGS: There is no ascites evident. LIVER: Liver is hyperechoic indicating steatosis. Also mild hepatomegaly. GALLBLADDER/BILIARY: There are no gallstones. No gallbladder wall edema nor pericholecystic fluid. The common hepatic duct isnot dilated, measuring 5mm at the level of ruth hepatis. PANCREAS: Difficult to visualize because of overlying bowel gas. SPLEEN: The spleen is not enlarged and there are no intrasplenic lesions evident. KIDNEYS:Kidneys exhibit normal size with no evidence of solid mass, calculus, nor hydronephrosis. No cortical cysts evident. ABDOMINAL AORTA: There is no evidence of abdominal aortic aneurysm. IVC: Normal diameter where visualized. IMPRESSION: 1. No evidence of cholelithiasis nor dilatation of the biliary tree. 2. Hepatic steatosis. Mild hepatomegaly. Correlation with a patent blood work is recommended. 3. Pancreas is not well seen on this study due to overlying bowel gas. There is no ascites. DATA REPOSITORY:
== END ==
PROVIDERS: PCP Nurse Practitioner Family; Visit Provider Nurse Practitioner Family
DX: K76.0 Fatty (change of) liver, not elsewhere classified (principal); R16.0 Hepatomegaly, not elsewhere classified
CPT/HCPCS: 76700

== ENCOUNTER 2021-10-25 11:13 | Outpatient (REF) | payer MEDICAID, SELFPAY ==
[2021-10-25 15:23] LABS: HCT 43.2 % (36.0-46.0); HGB 14.7 g/dL (11.2-15.7); MCH 35.7 pg (27.0-33.0); MCV 105 fL (80-95); MPV 10.8 fL (8.0-11.0); Platelet Count 235 10^3/uL (130-400); RBC 4.12 10^6/uL (3.93-5.22); RDW 12.7 % (11.7-14.6); RDW-SD 49.3 fL; WBC 4.63 10^3/uL (4.4-10.8)
[2021-10-25 15:50] LABS: ALT 96 U/L (14-59); AST 238 U/L (15-37); Albumin 3.6 g/dL (3.4-5.0); Alkaline Phosphatase 115 U/L (46-116); Anion Gap 9.6 mmol/L (3-11); BUN 7 mg/dL (7-18); Bilirubin, Total 2.2 mg/dL (0.2-1.0); CO2 29.4 mmol/L (21.0-32.0); CREATININE 0.8 mg/dL (0.55-1.02); Calcium 8.9 mg/dL (8.5-10.1); Chloride 100 mmol/L (98-107); Glucose 109 mg/dL (74-106); Potassium 3.3 mmol/L (3.5-5.1); Sodium 139 mmol/L (136-145); Total Protein 7.8 g/dL (6.4-8.2)
[2021-10-26 11:15] LABS: Lyme Ab w Rflx to Lyme Confirm Negative (Negative)
[2021-10-27 22:57] LABS: Anaplasma phagocytophilum Negative (Negative); B. miyamotoi PCR Negative (Negative); Babesia divergens/MO-1 Negative (Negative); Babesia duncani Negative (Negative); Babesia microti Negative (Negative); Ehrlichia chaffeensis Negative (Negative); Ehrlichia ewingii/canis Negative (Negative); Ehrlichia muris eauclairensis Negative (Negative)
== END 2021-10-25 11:14 | disposition home or self-care (01) ==
LOC: NCHCN 11:13
PROVIDERS: PCP Nurse Practitioner Family; Visit Provider Nurse Practitioner Family
DX: R19.7 Diarrhea, unspecified (principal); R16.0 Hepatomegaly, not elsewhere classified; E83.42 Hypomagnesemia; E87.6 Hypokalemia; R53.83 Other fatigue
CPT/HCPCS: 80053; 85027; 87798; 86618

== ENCOUNTER 2024-07-10 14:51 | Outpatient (REF) | payer BC, SELFPAY ==
[2024-07-10 21:25] LABS: HCT 41.6 % (36.0-46.0); HGB 14.1 g/dL (11.2-15.7); MCH 34.8 pg (27.0-33.0); MCHC 33.9 % (32.0-36.0); MCV 103 fL (80-95); MPV 11.3 fL (8.0-11.0); Platelet Count 325 10^3/uL (130-400); RBC 4.05 10^6/uL (3.93-5.22); RDW 12.9 % (11.7-14.6); RDW-SD 49.4 fL; WBC 8.52 10^3/uL (4.4-10.8)
[2024-07-10 21:51] LABS: ALT 36 U/L (14-59); AST 53 U/L (15-37); Alkaline Phosphatase 93 U/L (46-116); Anion Gap 11.1 mmol/L (3-11); BUN 3 mg/dL (7-18); Bilirubin, Total 0.6 mg/dL (0.2-1.0); CO2 24.9 mmol/L (21.0-32.0); CREATININE 0.7 mg/dL (0.55-1.02); Calcium 9.2 mg/dL (8.5-10.1); Calculated LDL 101 mg/dL (<100); Chloride 107 mmol/L (98-107); Cholesterol 195 mg/dL (<200); Estimated GFR 110.67 (mL/min/1.73m2); Glucose 105 mg/dL (74-106); HDL Cholesterol 80 mg/dL (>or=50); Potassium 3.8 mmol/L (3.5-5.1); Sodium 143 mmol/L (136-145); Triglyceride 72 mg/dL (<150)
== END 2024-07-10 14:52 | disposition home or self-care (01) ==
LOC: NCHCN 14:51
PROVIDERS: PCP Nurse Practitioner Family; Visit Provider Nurse Practitioner Family
DX: Z00.00 Encounter for general adult medical examination without abnormal findings (principal)
CPT/HCPCS: 80053; 80061; 85027

== ENCOUNTER 2024-11-10 02:41 | Outpatient (CLI) | payer BC, SELFPAY ==
--- NOTE | 2024-11-10 | DI.MAMMO_ITS ---
Exam(s) MAMMO SCREENING EXAM: MAMMO SCREENING CLINICAL HISTORY: Screening, Z12.39 TECHNIQUE: Bilateral full field digital CC and MLO mammographic images were obtained with 3D tomosynthesis and utilizing computer aided detection (CAD). COMPARISON: Comparison is made with prior examinations. FINDINGS: Masses/Architectural Distortion: No suspicious masses or areas of architectural distortion are present. Microcalcifications: No suspicious pleomorphic-type are seen. Skin Thickening/Nipple Retraction: None. IMPRESSION: 1. No significant interval change with no specific features of malignancy noted. 2. Unless there is more urgent need, screening mammography is recommended, as per [employer] guidelines. BI-RADS Category 1 - Negative Breast Density - Category C - The breast are heterogeneously dense, which may obscure small masses. Breast density Category C or D implies that the patient has dense breast tissue. Dense breast tissue can make it harder to find cancer on a mammogram. Dense breast tissue is also associated with an increased risk of breast cancer. This information about the result of the mammogram report was provided to the patient to raise their awareness. Use this report when you speak with the patient about their risks for breast cancer, which includes their family history. At that time, you may recommend additional screening tests (Ultrasound or MRI) as these tests may add significant information. A negative radiographic report should not delay biopsy if a dominant or clinically suspicious mass is present. Up to ten percent of cancers are not identified on mammography. A negative report may reinforce clinical impression. Adenosis and dense breasts may obscure an underlying neoplasm. False positive reports average 6 to 10%. Patient will receive a letter notifying them of these results.
== END 2024-11-10 03:01 ==
LOC: DI 02:42
PROVIDERS: PCP Nurse Practitioner Family; Visit Provider Nurse Practitioner Family
DX: Z12.31 Encounter for screening mammogram for malignant neoplasm of breast (principal); R92.333 Mammographic heterogeneous density, bilateral breasts
CPT/HCPCS: 77063; 77067